=== PATIENT | male | born 1950 | race Caucasian/White ===

== ENCOUNTER → 2020-05-31 08:59 | Outpatient (CLI) | payer BC, MEDICARE, SELFPAY ==
--- NOTE | ~2020-05-31 | XR_ITS ---
EXAMINATION: XR knee RT 3V DATE: 05/31/2020 09:18 INDICATION: Unspecified osteoarthritis, unspecified site. TECHNIQUE: 3 views of right knee were obtained. COMPARISON: Right knee radiographs 12/23/2017 FINDINGS: Bone alignment is normal. No fracture. There is mild tricompartmental osteoarthritis. There is chondrocalcinosis of the menisci. There is a small knee joint effusion. IMPRESSION: 1. Mild right knee osteoarthritis. 2. Small right knee joint effusion. Reviewed, dictated and finalized at location A.
--- NOTE | ~2020-05-31 | XR_ITS ---
EXAMINATION: XR knee LT 3V DATE: 05/31/2020 09:18 INDICATION: Unspecified osteoarthritis, unspecified site. TECHNIQUE: 3 views of left knee were obtained. COMPARISON: Left knee radiographs 12/23/2017 FINDINGS: Bone alignment is normal. No fracture. There is mild tricompartmental osteoarthritis. There is chondrocalcinosis of the menisci. There is a small knee joint effusion. IMPRESSION: 1. Mild left knee osteoarthritis. 2. Small left knee joint effusion. Reviewed, dictated and finalized at location A.
== END ==
PROVIDERS: PCP Internal Medicine; Visit Provider Internal Medicine
DX: M17.0 Bilateral primary osteoarthritis of knee (principal); M25.461 Effusion, right knee; M24.562 Contracture, left knee
CPT/HCPCS: 73562

== ENCOUNTER 2020-07-20 12:51 | Outpatient (CLI) | payer BC, MEDICARE, SELFPAY ==
--- NOTE | ~2020-07-20 | MR_ITS ---
EXAMINATION: MR knee LT wo con DATE: 07/20/2020 13:44 INDICATION: Left knee pain TECHNIQUE: Magnetic resonance imaging (MRI) of the left knee was performed without intravenous contra st. Sequences included coronal PD-weighted FSE, coronal PD-weighted FS FSE, sagittal T2-weighted FSE , sagittal PD-weighted FS FSE and axial PD weighted fat saturated FSE. COMPARISON: None. FINDINGS: There is some degree of motion artifact on all sequences which mild to moderately limits evaluation. Medial compartment: Medial meniscus is normal. Deep chondral ulceration without degenerative subarticular changes at the anterior to central weightbearing medial femoral condyle. Deep chondral fissuring at the lateral aspe ct of the medial tibial plateau along the shoulder of the intercondylar eminence with mild underlying subarticular edema. Lateral compartment: Horizontal increased signal in the body of the lateral meniscus extending to the junction with the an terior horn where there appears be a tiny focus of increased signal along the inferior articular surf jose on 3 of the sagittal images consistent with tear. Articular cartilage is normal. Patellofemoral compartment: Deep chondral ulceration with mild subarticular edema at the medial patellar facet and patellar apica l ridge. Deep chondral fissuring at the inferior aspect of the patellar apical ridge and extending to the lateral patellar facet where there is additional mild subarticular edema. Deep chondral ulcerati on with underlying cortical irregularity and subarticular cystic change and edema at the central aspe ct of the medial trochlea with severe ulceration at the trochlear groove. Ligaments and tendons: Anterior cruciate ligament is normal. There is prominent thickening with increased intrasubstance sig nal of the posterior cruciate ligament consistent with at least partial tear. The medial collateral l igament and fibular collateral ligament complex are normal. Mild distal quadriceps tendon. Patellar t endon is normal. The visualized medial and lateral hamstring tendons as well as the iliotibial band a re normal. Fluid: Small left knee joint effusion. No loose osteochondral bodies identified. Osseous/other: Bone alignment is normal. No fracture or pathologic marrow replacing process. IMPRESSION: 1. Likely at least high-grade partial tear of the posterior cruciate ligament. Correlate with physica l exam to assess for degree of any residual functional integrity. 2. Longitudinal horizontal tear at the body and anterior horn of the lateral meniscus. 3. Mild medial and mild to moderate patellofemoral osteoarthritis with regions of moderate to high-gr nini chondromalacia in both compartments. 4. Small left knee joint effusion. 5. Evaluation moderately limited by motion artifact to some degree on all sequences. Reviewed, dictated and finalized at location A. IMPRESSION: 1. Likely at least high-grade partial tear of the posterior cruciate ligament. Correlate with physical exam to assess for degree of any residual functional in tegrity. 2. Longitudinal horizontal tear at the body and anterior horn of the lateral me niscus. 3. Mild medial and mild to moderate patellofemoral osteoarthritis with regions of moderate to high-grade chondromalacia in both compartments. 4. Small left knee joint effusion. 5. Evaluation moderately limited by motion artifact to some degree on all seque nces.
== END 2020-07-20 12:52 | disposition home or self-care (01) ==
LOC: ANHIMG 12:57
PROVIDERS: PCP Internal Medicine; Visit Provider Orthopaedic Surgery
DX: M25.462 Effusion, left knee (principal); M17.12 Unilateral primary osteoarthritis, left knee
CPT/HCPCS: 73721

== ENCOUNTER → 2021-11-27 00:43 | Outpatient (CLI) | payer BC, MEDICARE, SELFPAY ==
[2021-11-27 14:37] LABS: Influenza A QL RT-PCR Negative (Negative); Influenza B QL RT-PCR Negative (Negative); SARS-CoV-2 RNA PCR Positive
== END ==
PROVIDERS: PCP Internal Medicine; Visit Provider Internal Medicine
DX: R68.89 Other general symptoms and signs (principal); U07.1 COVID-19
CPT/HCPCS: 87502; C9803; U0003; U0005

== ENCOUNTER 2022-07-10 11:27 | Emergency (ER) | payer OTHER, MEDICARE, SELFPAY ==
--- NOTE | ~2022-07-10 | XR_ITS ---
EXAMINATION: XR wrist RT min 3V DATE: 07/10/2022 11:58 INDICATION: Right wrist pain. TECHNIQUE: 4 views of right wrist were obtained. COMPARISON: None. FINDINGS: Bone alignment is normal. No fracture. There is sclerosis in lunate. There is mild osteoart hritis of triscaphe joint, first carpometacarpal joint, and some of the metacarpophalangeal joints. T here are dystrophic calcifications about the wrist. IMPRESSION: 1. Sclerosis in lunate, consistent with osteonecrosis. 2. Mild polyarticular osteoarthritis. Reviewed, dictated and finalized at location A.
[2022-07-10 11:39] VITALS: BP 133/80; PULSE 74; RESP 16; TEMP 36.6; O2SAT 99
--- NOTE | 2022-07-10 11:41 | ED.UPPEXIN ---
HPI - Extremity Injury (Upper) General Chief Complaint: Extremity Injury, Upper Stated Complaint: right wrist injury Time Seen by Provider: 07/10/22 11:40 Source: patient Mode of arrival: ambulatory Limitations: no limitations History of Present Illness HPI narrative: Mr. Moore is a 71-year-old male patient presents to the clinic today with complaints of right wrist pain. He reports that he thinks he may have injured his wrist on Saturday when he was sitting on a deck fixing the deck and pushing himself back using his wrist. He reports he did noticed it hurt but to continue to work through Saturday. He has pain over the ulnar aspect of the dorsal wrist Related Data Home Medications Medication Instructions Recorded Confirmed triamterene 37.5 1 tablet PO QAM 01/06/20 05/11/22 mg-hydrochlorothiazide 25 mg tablet cholecalciferol (vitamin D3) 25 25 mcg PO DAILY 04/11/20 05/11/22 mcg (1,000 unit) capsule Allergies Allergy/AdvReac Type Severity Reaction Status Date / Time codeine Allergy Unknown unknown Verified 05/11/22 07:44 Review of Systems Review of Systems: Pertinent positives per HPI. Patient denies any fever, chills, rash, headache, visual changes, dizziness, cough, runny nose, sore throat, shortness of breath, chest pain, palpitations, nausea, vomiting, diarrhea, constipation, abdominal pain, or any urinary issues. [facility] Past Medical History Medical History Anxiety Chondrocalcinosis of knee CVA (cerebral vascular accident) Degenerative joint disease of knee High cholesterol Hypertension Left knee DJD CAITLYN (obstructive sleep apnea) Right knee DJD Seasonal allergies Seizures Vision abnormalities Surgical History Surgical History Hx of appendectomy Family History Family History Father Carcinoma of colon Family history of lung cancer, Onset Age: 72 Mother Family history of Alzheimer's disease Other Arthritis Hypertension Social History Social History Smoking packs per day: 0.5 Smoking cigarettes per day: 10.0 Years smoked: 4 Smoking pack-years: 2.00 Smoking status: Former smoker Tobacco type: cigarettes Second hand tobacco smoke exposure: Yes Smoking end date: 11/11/91 Alcohol intake: never Substance use: current Substance use type: marijuana Comments At the time of my signature, I reviewed and agree with the nursing past medical, surgical, social, and family history. There is no relevant family history pertinent to the patient complaint. Exam Narrative: General: Well-developed, well nourished, in no apparent distress Head: Normocephalic, atraumatic. Cardio: Regular rate and rhythm, s1 and s2 normal, no murmur appreciated. Resp: Clear to auscultation bilaterally, no rhonchi, rales, wheezing or rubs. Musculoskeletal: No deformity, tender to palpation over the ulnar aspect of the right dorsal radius, grossly normal range of motion, muscle strength strong and equal, peripheral pulse strong, mild swelling noted, no cyanosis, normal gait and station Course Course Emergency Course: Portions of this record may have been created with voice recognition software. Level of Care: Express Care Visit Vital Signs Vital signs: Vital Signs Temperature 36.6 C 07/10/22 11:39 Pulse Rate 74 07/10/22 11:39 Respiratory Rate 16 07/10/22 11:39 Blood Pressure 133/80 07/10/22 11:39 Pulse Oximetry 99 07/10/22 11:39 Temperature 36.6 C 07/10/22 11:39 Pulse Rate 74 07/10/22 11:39 Respiratory Rate 16 07/10/22 11:39 Blood Pressure 133/80 07/10/22 11:39 Pulse Oximetry 99 07/10/22 11:39 Vital signs reviewed MDM - Extremity Injury (Upper) MDM Narrative Medical decision making narrative: At the time
== END 2022-07-10 12:35 | disposition home or self-care (01) ==
PROVIDERS: Emergency Provider Nurse Practitioner Family; PCP Internal Medicine
DX: S63.501A Unspecified sprain of right wrist, initial encounter (principal); X50.3XXA Overexertion from repetitive movements, initial encounter; E78.00 Pure hypercholesterolemia, unspecified; I10 Essential (primary) hypertension; M17.0 Bilateral primary osteoarthritis of knee; Z86.73 Personal history of transient ischemic attack (TIA), and cerebral infarction without residual deficits; Z87.891 Personal history of nicotine dependence
CPT/HCPCS: 73110; 99213; G0463

== ENCOUNTER 2024-03-12 08:05 | Outpatient (CLI) | payer OTHER, MEDICARE, SELFPAY ==
--- NOTE | ~2024-03-12 | XR_ITS ---
EXAMINATION: XR barium swallow w SBFT DATE: 03/12/2024 10:06 INDICATION: TECHNIQUE: The patient drank thick barium, gas-producing crystals, and thin barium. Fluoroscopic spot radiographs of the hypopharynx, esophagus, stomach and proximal small bowel were obtained. Additiona l overhead radiographs were obtained during the transit through the small bowel. Spot fluoroscopic i mages of the small bowel were obtained upon contrast reaching the cecum. Fluoroscopy exposure time wa s minutes. Fluoroscopy exposure time was minutes. COMPARISON: None. FINDINGS: The pharynx is symmetric and without evidence of mass lesion or mucosal irregularity. There are surgi thai clips the right side of the neck reportedly related to a prior carotid endarterectomy. The esopha dariel is normal without mass or stricture. Esophageal motility is normal. There is no hiatal hernia. Th ere was no gastroesophageal reflux with provocative maneuvers. The stomach and proximal small bowel a re normal. Transit time from the stomach to proximal colon was approximately 30 minutes. There is normal caliber and mucosal fold pattern throughout the small bowel. Terminal ileum is normal. IMPRESSION: 1. Normal esophagram and small bowel follow-through study. Reviewed, dictated and finalized at location A.
== END 2024-03-12 08:06 | disposition home or self-care (01) ==
PROVIDERS: PCP Nurse Practitioner Family; Visit Provider Nurse Practitioner Family
DX: R11.10 Vomiting, unspecified (principal); R13.10 Dysphagia, unspecified
CPT/HCPCS: 74240

== ENCOUNTER 2025-09-16 07:32 | Outpatient (CLI) | payer OTHER, MEDICARE, SELFPAY ==
--- NOTE | ~2025-09-16 | US_ITS ---
EXAM/PROCEDURE: US art doppler w press LE BI HISTORY: I73.9 - Peripheral vascular disease, unspecified COMPARISON: None available. TECHNIQUE: Standard technique for MARIA TERESA study performed FINDINGS: Right and left brachial pressure readings are 137 and 140 Segmental pressure readings as follows: Distal thigh: 125 on the right and 139 Popliteal: 143 and 134 Cook Chill Technician tibialis: 126 and 139 Dorsalis pedis, 33 and 164 Great toe: 62 and 76 Right and left ABIs are 0.95 and 1.17 respectively. Plethysmography appears grossly normal. IMPRESSION: Both ABIs are within normal limits. Reviewed, dictated and finalized at location A. [employer]
--- OUTSIDE RECORDS SUMMARY | 2025-09-16 16:31 | XMS_ITS | Clinical Summary ---
Author Organization [facility] [place] [facility] [place] [address] Address [address] [place] [address] Care Team Providers Care Mortgage Collector Name Role Phone Sarmad Fraire MD Primary Care Provider [phone] Allergies Active Allergy Reactions Criticality Noted Date Comments Codeine Flushing (skin),Rash Medium Medications cholecalciferol (VITAMIN D3) 1,000 unit capsule 0 0 5 Active Additional Information Patient taking differently: 1,000 Units oral 2 times daily, Indications: Vitamin D Deficiency, Informant: Self, Reported on 01/08/2025 lancets (LANCETS,THIN) 28 gauge misc One touch ultra 1 meter 200 each 3 5 Active blood glucose diagnostic (ONETOUCH ULTRA TEST) strip test 1 by finger stick BS route once 2x's daily 200 strip 3 5 Active aspirin 81 mg chewable tablet chew 1 tablet by oral route every day 0 0 4 Active amLODIPine (NORVASC) 10 mg tablet take 1 tablet by oral route every day 0 0 7 Active triamterene-hydr oCHLOROthiazide (triamterene-hyd roCHLOROthiazide ) 37.5-25 mg per tablet/capsule Take 1 tablet/capsule by mouth daily Active blood-glucose meter kit OneTouch Ultra2 Meter kit Active doxepin 6 mg tablet Take by mouth 9 Active ezetimibe (ZETIA) 10 mg tabletIndication s:hyperlipidemia Take 1 tablet (10 mg total) by mouth daily 9 Active omega-3 fatty acids (LOVAZA) 1 gram capsule TK 1 C PO BID 0 Active rosuvastatin (CRESTOR) 20 mg tabletIndication s:hyperlipidemia Take 1 tablet (20 mg total) by mouth daily 1 Active allopurinoL (ZYLOPRIM) 100 mg tablet Take 1 tablet (100 mg total) by mouth daily 30 tablet 11 2 Active cloNIDine (CATAPRES) 0.3 mg tablet Take 1 tablet (0.3 mg total) by mouth 3 (three) times a day 90 tablet 11 2 Active labetaloL (NORMODYNE,TRAND ATE) 200 mg tablet Take 2 tablets (400 mg total) by mouth 3 (three) times a day 180 tablet 11 2 Active gabapentin (NEURONTIN) 300 mg capsule Take 1 capsule (300 mg total) by mouth nightly 30 capsule 11 2 Active acetaminophen 325 mg capsuleIndicatio ns:Fever,Pain Take 1 capsule (325 mg total) by mouth every 4 (four) hours as needed (pain, fever) 2 tablets by mouth every 4 hours as needed for pain or fever 2 Active doxazosin (CARDURA) 8 mg tablet [address] (CYMBALTA) 60 mg capsule 3 Active HYDROcodone-acet aminophen (NORCO) 7.5-325 mg per tablet Take 1 tablet by mouth 2 (two) times a day as needed for pain 3 Active pregabalin (LYRICA) 75 mg capsule 3 Active allopurinoL (ZYLOPRIM) 300 mg tablet 3 Active levETIRAcetam (KEPPRA) 1,000 mg tabletIndication s: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 with good tolerability and no seizures reported. I have renewed his levetiracetam is presently prescribed. He will follow-up in neurology clinic in 1 year. 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 He remains on the rest and 1000 mg b.i.d. with no reported seizures over the past year and no tolerability issues with medication. I have renewed his levetiracetam a 1000 mg b.i.d.. I plan on seeing him back in 1 year. Hyperlipidemia 12/29/2018 CKD stage 3 due to type 2 diabetes mellitus 11/13 Bilateral carotid artery disease 06/04/2017 DM (diabetes mellitus) with peripheral vascular complication 06/04/2017 Essential hypertension 06/04/2017 SAH (subarachnoid hemorrhage) 11/26/2016 Overview (02/15/2017): SAH (subarachnoid hemorrhage) Assessment & Plan (06/13/2020 9:05 AM CDT): Patient's physical examination is unchanged from a year ago. Supportive care continues to be indicated from the neurological standpoint. Hemorrhage into subarachnoid space of neuraxis 0 11/26/2016 Overview (06/13/2020): SAH (subarachnoid hemorrhage) Stenosis of carotid artery 03/19/2016 Overview (02/15/2017): Bilateral carotid artery stenosis Dyslipidemia associated with type 2 diabetes smita litus 03/19/2016 Overview (02/15/2017): DM type 2 with diabetic dyslipidemia History of carotid endarterectomy 09/05/2015 Overview (02/15/2017): Status post carotid endarterectomy Peripheral arterial occlusive disease 09/05/2015 Overview (02/15/2017): PAD (peripheral artery disease) Chronic kidney disease, stage 3 (moderate) 01/19 Type 2 diabetes mellitus without complication Chronic renal impairment 12/01/2014 Overview (02/15/2017): CKD (chronic kidney disease) Arthralgia of hip 05/26/2014 Overview (02/15/2017): Hip pain Pain in joint 05/11/2013 Essential (primary) hypertension 05/11/2013 Surgical History Surgery Date Site/Laterality Comments CAROTID ARTERY ANGIOPLASTY NECK SURGERY APPENDECTOMY Medical History Medical History Date Comments Hypertension Hypertension Adiposity Obesity Hx Other Medical Diabetes Type I I Gout Gout Hx Other Medical DJD Hx Other Medical Bilateral Carot id Disease Type 2 diabetes mellitus Diabete s type 2 Hx Other Medical carotid endarte rectomy Kidney disorder Kidney disease Seizures (HCC) Family History Medical History Relation Name Comments No Known Problems Brother Colon cancer Father Cancer, colon; Alzheimer's disease Mother Diabetes type II Other Family hist ory of Diabetes mellitus type 2; knee pain Sister Relation Name Status Comments Brother Alive Father Mother Other Sister Alive Social History Tobacco Use Types Packs/Day Years Used Date Smoking Tobacco: Former Smokeless Tobacco: Never Alcohol Use Standard Drinks/Week Comments No 0 (1 standard drink = 0.6 oz pur e alcohol) Social Connection and Isolation Panel Answer Date Recorded In a typical week, how many times do you talk on the phone with family, friends, or neighbors? More than three times a week 04/30/2022 How often do you get togethe r with friends or relatives? More than three times a week 04/30/2022 How often do you attend chur ch or muslim services? 1 to 4 times per year 04/30/2022 Do you belong to any clubs o r organizations such as gnosticist groups, unions, fraternal or athletic groups, or school groups? No 04/30/2022 How often do you attend meet ings of the clubs or organizations you belong to? Never 04/30/2022 Are you , , di vorced, , never , or living with a partner? 04/30/2022 Overall Financial Resource Strain (CARDIA) Answe r Date Recorded How hard is it for you to pa y for the very basics like food, housing, medical care, and heating? Not hard at all 04/30/2022 Hunger Vital Sign Answer Date Recorded Within the past 12 months, y ou worried that your food would run out before you got the money to buy more. Never true 04/30/20 22 Within the past 12 months, t he food you bought just didn't last and you didn't have money to get more. Never true 04/30/2022 PRAPARE - Transportation Answer Date Re corded In the past 12 months, has l ack of transportation kept you from medical appointments or from getting medications? No 04/12 In the past 12 months, has l ack of transportation kept you from meetings, work, or from getting things needed for daily living? No 04/30/2022 Housing Stability Vital Sign Answer Ramone e Recorded In the last 12 months, was t here a time when you were not able to pay the mortgage or rent on time? No 04/30/2022 In the last 12 months, how many places have you lived? 1 04/30/2022 In the last 12 months, was t here a time when you did not have a steady place to sleep or slept in a mcc (including now)? No 04/30/2022 Sex and Gender Information Value Date Recorded Sex Assigned at Not on file Legal Sex Male 8:10 AM HIDE BUYER Gender Identity Not on file Sexual Orientation Not on file Last Filed Vital Signs Vital Sign Reading Time Taken Comments Blood Pressure 105/60 01/08/2025 1:50 PM HIDE BUYER Pulse 78 01/08/2025 1:50 PM HIDE BUYER Temperature 35.9 C (96.6 F) 11/23/2022 10:02 AM HIDE BUYER Respiratory Rate 20 01/08/2025 1:50 PM HIDE BUYER Oxygen Saturation 97% 01/08/2025 1:50 PM HIDE BUYER Inhaled Oxygen Concentration - - Weight 74.8 kg (165 lb) 01/08/2025 1:50 PM HIDE BUYER Height 180.3 cm (5' 11) 01/08/2025 1:50 PM HIDE BUYER Body Mass Index 23.01 01/08/2025 1:50 PM HIDE BUYER Plan of Treatment Health Maintenance Due Date Last Done Comments Albumin Creatinine Ratio, Urine 1952 Colon Cancer Screening-Colonoscopy 1952 Depression Screening 1952 Hemoglobin A1C 1952 Hepatitis C Screening 1952 Dilated Eye Exam 1952 Foot Exam 1952 DTaP/Tdap/Td Vaccine (1 - Tdap) 1963 Hepatitis B Screening 1970 Zoster Vaccine (1 of 2) 2002 Abdominal Aortic Aneurysm (A AA) Screen 2017 Well Visit 65+ 2017 Lipid Panel 12/09/2018 12/09/2017, 05/12, 04/08/2016 Fall Risk Assessment 04/27/2023 04/27/2022 eGFR 04/27/2023 04/27/2022, 04/11, 04/25/2022, Additional history exists Pneumococcal vaccine 65+ (3 of 3 - PCV20 or PCV21) 09/11/2023 09/11/2018, 07/29/2018, 09/15/2016, Additional history exists Influenza Vaccine (#1) 2025 , 09/11/2020, 10/05/2019, Additional history exists Procedures Procedure Name Priority Date/Time Associated Diagnosis Comments EGFR Routine 04/27/2022 5:34 AM CDT LIPID PANEL Routine 12/09/2017 10:45 AM HIDE BUYER from Last 3 Months or Most Recently Relevant to Health Maintenance Results * (ABNORMAL) eGFR (04/27/2022 5:34 AM CDT) eGFR 55(L) 90 - 130 mL/min/1. 73 m2 [facility] Comment: Interpretive Data Reference Interval Normal >/= 90 mL/min/1.73m2 Mildly decreased* 60 - 89 mL/min/1.73m2 Mildly to moderately decreased 45 - 59 mL/min/1.73m2 Moderately to severely decreased 30 - 44 mL/min/1.73m2 Severely decreased 15 - 29 mL/min/1.73m2 Kidney Failure < 15 mL/min/1.73m2 *Relative to young adult level Estimated glomerular filtration rate is determined by the 2020 CKD-EPI equation recommended by the National Kidney Foundation (A Unifying Approach to GFR Estimation: Recommendations of the NKF-ASK Task Force on Reassessing the Inclusion of Race in Diagnosing Kidney Disease, JASN 2020). The CKD-EPI equation should not be used for patients with unstable renal function and has not been validated in children and those over 70. Current interpretive data was last reviewed 2021. Blood 04/27/2022 5:34 AM CDT 04/27/2022 6:53 AM CDT us Abelardo Moreno MD LAB BLOOD ORDERABLE S Final Result [facility] [place] [address] * (ABNORMAL) Lipid panel (12/09/2017 10:45 AM HIDE BUYER) SCRIBED Cholesterol, Total 154 0 - 200 EXTERNAL LAB SCRIBED HDL 40 40 - 100 EXTERNAL LAB SCRIBED LDL 80 0 - 100 EXTERNAL LAB SCRIBED Triglycerides 263(A) 0 - 150 EXTERNAL LAB Blood specimen (specimen) Historical Provider LAB BLOOD ORDERABLES Edit ed Result - Final EXTERNAL LAB from Last 3 Months or Most Recently Relevant to Health Maintenance Insurance MEDICARE [employer] PPO MEDICARE [employer] PPO MEDICARE [employer] [facility] MEDICARE [employer] [facility] Advance Directives For more information, please contact: [phone] * Full Code (Latest Code Status on File) Date Activated Date Inactivated Comments 04/17/2022 4:50 AM 04/27/2022 6:56 PM Care Teams Mortgage Collector Relationship Specialty Start Date End Date Sarmad Fraire MD [id number] [place] [address] PCP - General Internal Medicine 12/10/17
== END 2025-09-16 07:33 | disposition home or self-care (01) ==
LOC: ANHIMG 07:35
PROVIDERS: PCP Family Medicine; Visit Provider Internal Medicine Cardiovascular Disease
DX: I73.9 Peripheral vascular disease, unspecified (principal)
CPT/HCPCS: 93923

== ENCOUNTER 2025-09-17 07:36 | Outpatient (CLI) | payer OTHER, MEDICARE, SELFPAY ==
--- NOTE | ~2025-09-17 | NM_ITS ---
EXAMINATION: NM oswaldo stress w perfusion DATE: 09/17/2025 12:07 INDICATION: Preop TECHNIQUE: Rest images were obtained following intravenous administration of 11.1 on mCi Tc99m tetrofosmin (Myoview). The patient was infused intravenously with Lexiscan (regadenoson). Then, 33.4 mCi Tc99m tetrofosmin (Myoview) was administered intravenously, and stress images were obtained. Data was r econstructed into short axis and horizontal and vertical long axis SPECT images. Gated SPECT images were also obtained. COMPARISON: None. FINDINGS: There is no definite reversible or fixed perfusion abnormality to suggest ischemia or infarction. . Left ventricular ejection fraction measures 69%. IMPRESSION: 1. No definite ischemia or infarct. 2. Normal left ventricular ejection fraction measuring 69%. Reviewed, dictated and finalized at location A. CE INSPECTOR
--- NOTE | 2025-09-17 08:06 | ECHO_ITS ---
Patient Info Name: Myron Moore Age: 74 years : 1950 Gender: Male Ht: 71 in Wt: 160 lbs BSA: 1.91 m2 HR: 62 bpm BP: 153 / 75 mmHg Technical Quality: Good Exam Date: 09/17/2025 8:13 AM Patient Status: O Admit Date: 09/17/2025 Exam Type: CA echo doppler color flow Complete two-dimensional, color flow and Doppler transthoracic echocardiogram is performed. Staff Referring Physician: Elmer Mchugh DO Radiographer Mammographer: Tamie Maldonado Attending Provider: Elmer Mchugh DO Summary 1. Complete two-dimensional, color flow and Doppler transthoracic echocardiogram is performed. 2. Left ventricular chamber dimension is normal. 3. Left ventricular systolic function is normal, estimated at 60-65. 4. The left ventricular diastolic function is grade I diastolic dysfunction. 5. E/e' 8 is minimally elevated. 6. There is mild aortic valve sclerosis. 7. There is trace mitral valve regurgitation. 8. No pulmonary hypertension, estimated pulmonary arterial systolic pressure is 26 mmHg. Left Ventricle E/e' 8 is minimally elevated. Left ventricular chamber dimension is normal. Left ventricular systolic function is normal, estimated at 60-65. The left ventricular diastolic function is grade I diastolic dysfunction. Right Ventricle Right ventricular chamber dimension is normal. Right ventricular systolic function is normal. Left Atria Left atrial chamber dimension is normal. Right Atria Right atrial chamber dimension is normal. Aortic Valve The aortic valve is trileaflet. There is mild aortic valve sclerosis. There is no aortic valve stenosis. There is no aortic valve regurgitation. Pulmonic Valve There is no pulmonic regurgitation. Mitral Valve There is no mitral valve stenosis. There is trace mitral valve regurgitation. Tricuspid Valve There is no tricuspid valve regurgitation. No pulmonary hypertension, estimated pulmonary arterial systolic pressure is 26 mmHg. Pericardium/Pleural There is no pericardial effusion. Inferior Vena Cava Normal inferior vena cava with >50% collapse upon inspiration consistent with normal right atrial pressure, 5 mmHg. Aorta The aortic root size at the sinus of Valsalva is normal. Left Ventricular Outflow Tract Name Value Normal LVOT 2D LVOT Diameter 1.9 cm LVOT Doppler LVOT Peak Velocity 92 cm/s LVOT Peak Gradient 3 mmHg LVOT Mean Gradient 2 mmHg LVOT VTI 27 cm LVOT VTI/AV VTI Ratio 0.9 LVOT Stroke Volume 78 ml LVOT CO 4.4 l/min LVOT CI 2.3 l/min/m2 Pulmonic Valve Name Value Normal RVOT Doppler RVOT Peak Velocity 62 cm/s RVOT Peak Gradient 2 mmHg PV Doppler PV Peak Velocity 78 cm/s PV Peak Gradient 2 mmHg Mitral Valve Name Value Normal MV Diastolic Function MV E Peak Velocity 58 cm/s MV A Peak Velocity 76 cm/s MV E/A 0.8 MV Decel Time (PW) 229 ms Tricuspid Valve Name Value Normal TV Regurgitation Doppler TR Peak Velocity 229 cm/s TR Peak Gradient 21 mmHg Estimated PAP/RSVP RA Pressure 5 mmHg <=5 PA Systolic Pressure 26 mmHg <36 RV Systolic Pressure 26 mmHg <36 Aorta Name Value Normal Ascending Aorta Ao Root Diameter (MM) 3.6 cm Ao Root Diam Index (MM) 1.9 cm/m2 Aortic Valve Name Value Normal AV Doppler AV Peak Velocity 126 cm/s AV Peak Gradient 6 mmHg AV Mean Gradient 3 mmHg AV VTI 30 cm AV Area (Cont Eq VTI) 2.6 cm2 >=3.0 AV Area (Cont Eq Bernard) 2.1 cm2 AV DI (Bernard) 0.73 AV Regurgitation 2D LVOT Area 2.9 cm2 Ventricles Name Value Normal LV Dimensions 2D/MM IVS Diastolic Thickness (2D) 0.9 cm 0.6-1.0 IVS Diastole Thickness (MM) 1.1 cm 0.6-1.0 LVID Diastole (2D) 4.6 cm 4.2-5.8 LVID Diastole (MM) 6.4 cm 4.2-5.8 LVIW Diastolic Thickness (2D) 1.1 cm 0.6-1.0 LVIW Diastolic Thickness (MM) 0.9 cm 0.6-1.0 LVID Systole (2D) 2.4 cm 2.5-4.0 LVID Systole (MM) 3.6 cm 2.5-4.0 LVOT Diameter 1.9 cm LV Mass (2D Cubed) 157.85 g 88.00-224.00 LV Mass Index (2D Cubed) 83 g/m2 49-115 Relative Wall Thickness (2D) 0.48 <=0.42 LV Mass (MM Cubed) 267.24 g 88.00-224.00 LV Mass Index (MM Cubed) 140 g/m2 49-115 Relative Wall Thickness (MM) 0.28 LV Fractional Shortening/Ejection Fraction 2D/MM LV Fractional Shortening (2D) 47 % 25-43 LV Fractional Shortening (MM) 44 % 25-43 LV EF (MM Teichholz) 75 % LV EF (2D Teichholz) 78 % LV Diastolic Volume (4C MOD) 73 ml LV EF (4C MOD) 60 % LV Diastolic Volume (2C MOD) 74 ml LV EF (2C MOD) 64 % LV Diastolic Volume (BP MOD) 74 ml 62-150 LV Diastolic Volume Index (BP MOD) 39 ml/m2 34-74 LV Systolic Volume (BP MOD) 28 ml 21-61 LV Systolic Volume Index (BP MOD) 15 ml/m2 11-31 LV EF (BP MOD) 62 % 52-72 LV Diastolic Length (4C) 9.4 cm LV Systolic Length (4C) 7.5 cm LV Stroke Volume (4C MOD) 44 ml Atria Name Value Normal LA Dimensions LA Dimension (MM) 4.0 cm 3.0-4.0 LA Volume (4C A-L) 57 ml LA Volume (BP A-L) 65 ml RA Dimensions RA Systolic Major [place] Length (4C) 5.7 cm 2.1-2.7 RA Area (4C) 20.4 cm2 <=18.0 Report Signatures
--- NOTE | 2025-09-17 08:06 | EST_ITS ---
Patient Info Name: Myron Moore Age: 74 years : 1950 Gender: Male Ht: 71 in Wt: 160 lbs BSA: 1.91 m2 HR: 47 bpm BP: 193 / 90 mmHg Exam Date: 09/17/2025 8:06 AM Patient Status: O Admit Date: 09/17/2025 Exam Type: CA stress oswaldo w NM A regadenoson stress test was performed. Staff Referring Physician: Elmer Mchugh DO Attending Provider: Elmer Mchugh DO Exercise Technologist: Donna Sanchez Exercise Physician: Elmer Mchugh DO Summary 1. 1. Negative lexiscan stress test for ischemic ST changes by ECG criteria. 2. 2. Baseline hypertension. 3. 3. Nuclear scan to follow and will be reported separately. Please correlate with it. 4. 4. Patient informed of the above results. Protocol: Lexiscan Stress ECG Details Stage: REST Duration (min): 2 min : 2 sec HR (bpm): 49 SBP (mmHg): 193 DBP (mmHg): 90 Stage: REST Duration (min): 14 min : 17 sec HR (bpm): 64 SBP (mmHg): 193 DBP (mmHg): 90 Stage: STAGE 1 Duration (min): 1 min : 0 sec HR (bpm): 66 SBP (mmHg): 193 DBP (mmHg): 90 Stage: RECOVERY Duration (min): 1 min : 0 sec HR (bpm): 81 SBP (mmHg): 188 DBP (mmHg): 57 Stage: RECOVERY Duration (min): 2 min : 0 sec HR (bpm): 88 SBP (mmHg): 188 DBP (mmHg): 57 Stage: RECOVERY Duration (min): 3 min : 0 sec HR (bpm): 80 SBP (mmHg): 188 DBP (mmHg): 57 Stage: RECOVERY Duration (min): 3 min : 52 sec HR (bpm): 78 SBP (mmHg): 126 DBP (mmHg): 69 Rest HR: 64 bpm Peak HR: 88 bpm Rest Sys BP: 193 mmHg Peak Sys BP: 188 mmHg Max Pred HR: 148 bpm % Max Pred HR: 59 % Target HR: 126 bpm Max RPP: 16,544 bpm*mmHg Termination Reason: Completed protocol Cardiac Symptoms: Shortness of breath Total Time: 1 min : 0 sec Rest Mckeon BP: 90 mmHg Peak Mckeon BP: 57 mmHg Total Dose: 0.4 mg Resting ECG Sinus rhythm. Stress ECG No ST changes. Arrhythmias None. Report Signatures
== END 2025-09-17 07:37 | disposition home or self-care (01) ==
PROVIDERS: PCP Family Medicine; Visit Provider Internal Medicine Cardiovascular Disease
DX: Z01.810 Encounter for preprocedural cardiovascular examination (principal)
CPT/HCPCS: 78452; 93017; 93306; A9502; J2785

== ENCOUNTER 2025-10-15 10:19 | Outpatient (CLI) | payer OTHER, MEDICARE, SELFPAY ==
--- NOTE | 2025-10-15 10:44 | ECG_ITS ---
Test Date: 2025-10-15 10:54:09 Measurements Intervals [place] Rate: 62 P: 40 [place]: 198 QRS: 55 QRSD: 104 T: 50 QT: 404 QTc: 411 Interpretive Statements SINUS RHYTHM BASELINE ARTIFACT- I, II, AVR, AVL, AVF, V1 NORMAL ECG No previous ECG available for comparison Electronically Signed On 10-15-2025 11:21:49 IS MANAGER by Elmer Mchugh D.O.
[2025-10-15 11:07] LABS: Add Urine Microscopic? YES; Appearance Urine Cloudy (Clear); Glucose Urine UA Negative (Negative); Leukocyte Esterase Ur Negative LEU/UL (Negative); Nitrate Urine Negative (Negative); Non Pathogenic Casts 0-2; Specific Grav Ur 1.024 (1.001-1.035)
[2025-10-15 11:09] LABS: Hematocrit 32.5 % (42.0-52.0); Hemoglobin 10.9 g/dL (14.0-18.0); Immature Granulocyte Percent A 0.4 % (0-0.5); Lymphocytes Absolute Auto 1.34 K/mm3 (0.9-3.2); Mean Corpuscular HGB Conc 33.5 g/dl (32-36); Mean Corpuscular Hemoglobin 31.1 pg (26-34); Mean Corpuscular Volume 92.6 fl (80-100); Nucleated Red Blood Cells Absolute Auto 0.000 K/mm3 (0.0-0.012); Nucleated Red Blood Cells Perc 0.0 % (0.0-0.2); Platelet Count Result 172 k/mm3 (150-375); Red Blood Count 3.51 M/mm3 (4.6-6.20); White Blood Count 5.2 K/mm3 (4.5-10.0)
[2025-10-15 11:20] LABS: Hemoglobin A1C 5.1 % (<5.7)
[2025-10-15 11:27] LABS: Anion Gap 0 mmol/L (4-12); Blood Urea Nitrogen 17 mg/dL (9-20); Calcium 9.3 mg/dL (8.4-10.2); Carbon Dioxide 33 mmol/L (22-30); Chloride 106 mmol/L (98-107); Estimated Glomerular Filt Rate > 60; Glucose 135 mg/dL (65-110); Potassium 3.6 mmol/L (3.4-5.0); Sodium 139 mmol/L (137-145)
== END 2025-10-15 10:20 | disposition home or self-care (01) ==
PROVIDERS: PCP Family Medicine; Visit Provider Nurse Practitioner Family
DX: N40.0 Benign prostatic hyperplasia without lower urinary tract symptoms (principal); I12.9 Hypertensive chronic kidney disease with stage 1 through stage 4 chronic kidney disease, or unspecified chronic kidney disease; N18.30 Chronic kidney disease, stage 3 unspecified; Z86.73 Personal history of transient ischemic attack (TIA), and cerebral infarction without residual deficits; E11.42 Type 2 diabetes mellitus with diabetic polyneuropathy; E78.2 Mixed hyperlipidemia
CPT/HCPCS: 36415; 80048; 81001; 83036; 85025; 93005